=== PATIENT | female | born 1945 | race Caucasian/White ===

== ENCOUNTER 2017-08-07 06:49 | Day surgery (SDC) | payer OTHER, MEDICAID ==
[2017-08-07] MEDS ORDERED: NS 500 ML IV 500 ML IV ONE (07:34)
[2017-08-07] MEDS ORDERED: TETRACAINE 0.5% OPHTH 1 DOSE AFFEYE ONE ×3 (08:00→09:00)
[2017-08-07] MEDS ORDERED: VIGAMOX 0.5% OPHTH 1 DOSE AFFEYE ONE ×6 (08:05→09:12)
[2017-08-07] MEDS ORDERED: PROLENSA OPHTH 1 DOSE AFFEYE ONE (08:16)
[2017-08-07] MEDS ORDERED: ALPHAGAN-P OPHTH 1 DOSE AFFEYE ONE (08:17)
[2017-08-07] MEDS ORDERED: AK-DILATE 2.5% OPHTH 1 DOSE OP ONE ×3 (08:18→08:20)
[2017-08-07] MEDS ORDERED: MYDRIACIL OPHTH 1 DOSE AFFEYE ONE ×3 (08:18→08:20)
[2017-08-07] MEDS ORDERED: CYCLOGYL 1% OPHTH 1 DOSE OP ONE ×3 (08:18→08:20)
[2017-08-07] MEDS ORDERED: BETADINE OPHTH SOLN 5% EACHEYE ONE (08:50)
[2017-08-07] MEDS ORDERED: XYLOCAINE-MPF 1% IJ ONE (09:00)
[2017-08-07] MEDS ORDERED: DUOVISC IO ONE ×2 (09:00→09:01)
[2017-08-07] MEDS ORDERED: ADRENALINE CHL INJ IJ ONE (09:00)
[2017-08-07] MEDS ORDERED: BSS OPHTH (PLAIN) 500 ML with VANCOMYCIN HCL 500 MG VIAL 25 MG, ADRENALINE CHL INJ 1 MG IR ONE ×3 (09:00)
[2017-08-07 10:38] VITALS: BP 121/64
[2017-08-07] MEDS ORDERED: VERSED ONE (15:55)
== END 2017-08-07 09:35 | disposition home or self-care (01) ==
LOC: SURG1 06:49
PROVIDERS: ATTEND Ophthalmology
PROC: 08RJ3JZ Replacement of Right Lens with Synthetic Substitute, Percutaneous Approach (ICD-10-PCS; principal; 2017-08-07 06:45)
PROC: 08DJ3ZZ Extraction of Right Lens, Percutaneous Approach (ICD-10-PCS; principal; 2017-08-07 06:45)
DX: H25.11 Age-related nuclear cataract, right eye (principal); H25.011 Cortical age-related cataract, right eye; H25.041 Posterior subcapsular polar age-related cataract, right eye
CPT/HCPCS: 99100; A4217; J0170; J2250; J3370